=== PATIENT | male | born 1950 | race Two or more races ===

== ENCOUNTER 2020-03-02 15:13 | Inpatient (IN) | payer OTHER ==
[~2020-03-02] VITALS: Ht 167.6 cm; Wt 107.5 kg
[2020-03-14] MEDS ORDERED: MELOXICAM15 MG PO (10:59)
[2020-03-14] MEDS ORDERED: GABAPENTIN400 MG PO (11:00)
[2020-03-14] MEDS ORDERED: LIPITOR20 MG PO (11:00)
[2020-03-14] MEDS ORDERED: SURFAK240 M1 PO (11:00)
[2020-03-14] MEDS ORDERED: RESTORIL15 MG PO (11:00)
[2020-03-21] MEDS ORDERED: LOSARTAN POTAS100 MG (14:42)
== END 2020-03-24 18:10 | disposition home or self-care (01) | DRG 331 ==
LOC: O/R 03-21 06:00 → SURG 03-21 06:00 → SURH 03-21 07:00 → SURG 03-21 17:54
PROVIDERS: ADMIT Colon & Rectal Surgery; ATTEND Colon & Rectal Surgery
PROC: 0DBN4ZZ Excision of Sigmoid Colon, Percutaneous Endoscopic Approach (ICD-10-PCS; 2020-03-21)
PROC: 07BC4ZX Excision of Pelvis Lymphatic, Percutaneous Endoscopic Approach, Diagnostic (ICD-10-PCS; 2020-03-21)
PROC: 0D1N4Z4 Bypass Sigmoid Colon to Cutaneous, Percutaneous Endoscopic Approach (ICD-10-PCS; 2020-03-21)
PROC: 0DTP4ZZ Resection of Rectum, Percutaneous Endoscopic Approach (ICD-10-PCS; principal; 2020-03-21 07:00)
DX: C20 Malignant neoplasm of rectum (principal); Z20.828 Contact with and (suspected) exposure to other viral communicable diseases; I10 Essential (primary) hypertension

== ENCOUNTER 2021-04-20 06:34 | Day surgery (SDC) | payer OTHER ==
[~2021-04-20 06:34] MED LIST: GABAPENTIN400 MG PO; LIPITOR20 MG PO; LOSARTAN POTAS100 MG; MELOXICAM15 MG PO; RESTORIL15 MG PO; SURFAK240 M1 PO
== END 2021-04-20 10:30 | disposition home or self-care (01) ==
LOC: AMB-ENDOS 06:34
PROVIDERS: ATTEND Colon & Rectal Surgery
DX: K62.89 Other specified diseases of anus and rectum (principal)